=== PATIENT | male | born 1960 | race Caucasian/White ===

== ENCOUNTER 2017-04-07 18:57 | Emergency (ER) | payer SELFPAY ==
[~2017-04-07 18:57] MED LIST: PEPCID 20MG TAB20 MG PO
[2017-04-07 18:59] VITALS: BP 124/66; TEMP 98.1
[2017-04-07] MEDS ORDERED: VOLTAREN 75 DR75 MG PO (20:29)
[2017-04-07 20:37] VITALS: PULSE 56
== END 2017-04-07 20:39 | disposition home or self-care (01) ==
LOC: COL.ER 18:57
DX: R07.81 Pleurodynia (principal); R07.89 Other chest pain
CPT/HCPCS: J1885

== ENCOUNTER 2017-05-15 18:50 | Emergency (ER) | payer OTHER ==
[~2017-05-15] VITALS: Ht 157.5 cm; Wt 64.1 kg
[~2017-05-15 18:50] MED LIST changes: +VOLTAREN 75 DR75 MG PO
[2017-05-15 19:02] VITALS: TEMP 99
[2017-05-15] MEDS ORDERED: SEPTRA DS 8001 TAB PO (22:13)
[2017-05-15] MEDS ORDERED: CEPHALEXIN500 M1 PO (22:13)
[2017-05-15 22:28] VITALS: BP 112/78; PULSE 71
== END 2017-05-15 22:29 | disposition home or self-care (01) ==
LOC: COL.ER 18:50
DX: L02.416 Cutaneous abscess of left lower limb (principal)